=== PATIENT | female | born 1995 | race Caucasian/White ===

== ENCOUNTER 2019-08-10 13:10 | Emergency (ER) | payer OTHER ==
[~2019-08-10] VITALS: Ht 167.6 cm; Wt 81.6 kg
[2019-08-10 13:13] VITALS: BP 124/57
--- NOTE | 2019-08-10 13:18 | NUR ---
WAIT AT LOBBY
--- NOTE | 2019-08-10 16:08 | NUR ---
PATIENT LEFT WITHOUT BEING SEEN BY DR. GORDILLO. NO FURTHER CARE PROVIDED FOR PATIENT.
--- NOTE | 2019-08-10 16:08 | NUR ---
CALLED PT IN LOBBY AND OUTSIDE , NO ANSWER.
--- NOTE | 2019-08-10 16:10 | NUR ---
CALLED PT IN LOBBY AND OUTSIDE , NO ANSWER.
--- NOTE | 2019-08-10 16:20 | NUR ---
CALLED PT IN LOBBY AND OUTSIDE , NO ANSWER.
== END 2019-08-10 16:04 | disposition left against medical advice (07) ==
LOC: MED 13:10
DX: R51 Headache (principal); K08.89 Other specified disorders of teeth and supporting structures; Z53.21 Procedure and treatment not carried out due to patient leaving prior to being seen by health care provider